=== PATIENT | female | born 1975 | race Caucasian/White ===

== ENCOUNTER 2019-08-09 11:06 | Emergency (ER) | payer BC ==
[~2019-08-09] VITALS: Ht 170.2 cm; Wt 71.6 kg
[2019-08-09 11:59] LABS: BASOPHILS % (AUTO) 0.6 % (0-1); EOSINOPHILS # (AUTO) 0.2 X10'3 (0-0.9); HEMATOCRIT 37.1 % (35.0-45.0); HEMOGLOBIN 12.2 g/dl (12.0-16.0); LYMPHOCYTES # (AUTO) 2.6 X10'3 (1.1-4.8); LYMPHOCYTES % (AUTO) 41.4 % (21-51); MEAN CORPUSCULAR HEMOGLOBIN 25.9 PG (27.0-31.0); MEAN CORPUSCULAR HGB CONC 32.8 g/dL (33.0-36.5); MEAN CORPUSCULAR VOLUME 79.1 FL (78-98); MEAN PLATELET VOLUME 9.2 FL (7.4-10.4); MONOCYTES # (AUTO) 0.4 X10'3 (0-0.9); MONOCYTES % (AUTO) 5.9 % (2-12); NEUTROPHILS # (AUTO) 3.1 X10'3 (1.8-7.7); NEUTROPHILS % (AUTO) 49.1 % (42-75); PLATELET COUNT 163 X10'3 (140-440); RED BLOOD COUNT 4.69 X10'6 (4.20-5.60); RED CELL DISTRIBUTION WIDTH 16.1 % (11.5-14.5); WHITE BLOOD COUNT 6.3 X10'3 (4.5-11.0)
[2019-08-09 12:18] LABS: ANION GAP 8 (8-16); BLOOD UREA NITROGEN 20 MG/DL (7-18); BUN/CREATININE RATIO 21.1 (6.6-38.0); CHLORIDE 105 MMOL/L (99-107); CREATININE 0.95 MG/DL (0.40-0.90); GLUCOSE 89 MG/DL (70-104); POTASSIUM 3.9 MMOL/L (3.5-5.1); SODIUM 139 MMOL/L (135-145); TOTAL CARBON DIOXIDE 25.6 MMOL/L (24-32)
[2019-08-09 12:19] LABS: ALANINE AMINOTRANSFERASE 27 U/L (12-78); ALBUMIN 3.7 G/DL (3.4-5.0); ALBUMIN/GLOBULIN RATIO 0.9 (1.1-1.5); ALKALINE PHOSPHATASE 90 IU/L (46-116); ASPARTATE AMINO TRANSFERASE 24 U/L (10-37); BILIRUBIN,TOTAL 0.3 MG/DL (0.1-1.0); CALCIUM 9.2 MG/DL (8.5-10.1); LIPASE 271 U/L (73-393); TOTAL PROTEIN 7.8 G/DL (6.4-8.2); eGFR 65 ML/MIN
[2019-08-09] MEDS: diatr meglu/diatrizoate 30ml oral sol.-(3 dose) bottle PO SCH ×2 (15:53→16:43)
--- NOTE | 2019-08-09 15:57 | NUR ---
MOVED PT TO BED 17 MEDICATED WITH FIRST DOSE GASTROGRAFIN, WILL GIVE 2ND DOSE IN 45 MIN AND CALL VIRAL IN CT TO HAVE PT BROUGHT OUT TO CT.
[2019-08-09] MEDS ORDERED: iohexol 300mg/ml 100ml inj. ONE (16:46)
--- NOTE | 2019-08-09 17:15 | NUR ---
PT BACK FROM CT, PT AMBULATORY TO BATHROOM WITH STEADY GAIT TO PROVIDE URINE SAMPLE PER ORDERS.
[2019-08-09 17:38] LABS: URINE HCG NEGATIVE (NEG)
[2019-08-09 17:48] LABS: CLARITY,URINE CLEAR (Clear); COLOR,URINE YELLOW (Yellow); GLUCOSE, URINE NEGATIVE (Neg); KETONES,URINE >=80 mg/dl (Neg); LEUKOCYTE ESTERASE ,URINE NEGATIVE (Neg); NITRITES, URINE NEGATIVE (Neg); OCCULT BLOOD,URINE NEGATIVE (Neg); PH,URINE 5.5 (4.8-8.0); PROTEIN,URINE NEGATIVE (Neg); UROBILINOGEN,URINE 0.2 E.U/dL (0.2-1.0)
[2019-08-09 17:55] LABS: UA COLLECTION TYPE CLN CATCH MIDSTREAM
[2019-08-09] MEDS ORDERED: TRAM50TA2 PO (20:24)
[2019-08-09 20:37] VITALS: BP 127/79
== END 2019-08-09 20:40 | disposition home or self-care (01) ==
LOC: ER 11:07
DX: K80.20 Calculus of gallbladder without cholecystitis without obstruction (principal); M62.838 Other muscle spasm; R11.10 Vomiting, unspecified; Z98.0 Intestinal bypass and anastomosis status; Z98.890 Other specified postprocedural states; Z88.0 Allergy status to penicillin; Z88.2 Allergy status to sulfonamides; Z79.899 Other long term (current) drug therapy
CPT/HCPCS: 36415; 74176; 76700; 80053; 81003; 81025; 83690; 85025; 99285; Q9963; Q9967

== ENCOUNTER 2021-03-01 05:47 | Emergency (ER) | payer BC ==
[~2021-03-01] VITALS: Ht 170.2 cm; Wt 72.7 kg
[2021-03-01 06:08] VITALS: BP 129/77
[2021-03-01] MEDS ORDERED: NAPR-56 PO (07:50)
[2021-03-01] MEDS ORDERED: naproxen 500mg tablet PO ONE (07:50)
== END 2021-03-01 10:08 | disposition home or self-care (01) ==
LOC: ER 05:47
DX: S83.207A Unspecified tear of unspecified meniscus, current injury, left knee, initial encounter (principal); Z90.89 Acquired absence of other organs; Z98.84 Bariatric surgery status; Z88.0 Allergy status to penicillin; Z88.2 Allergy status to sulfonamides; Z79.899 Other long term (current) drug therapy; X58.XXXA Exposure to other specified factors, initial encounter; Y93.89 Activity, other specified; Y92.89 Other specified places as the place of occurrence of the external cause; Y99.8 Other external cause status
CPT/HCPCS: 29505; 29515; 73564; 99283